=== PATIENT | female | born 1985 ===

== ENCOUNTER 2017-10-05 22:03 | Emergency (ER) | payer MEDICAID, OTHER ==
[2017-10-05 23:10] VITALS: BMI 27.4
[2017-10-05] MEDS ORDERED: Lactated Ringer's 1,000 ML IV SCH (23:45)
[2017-10-06 06:55] VITALS: TEMP 98.6
== END 2017-10-06 02:35 | disposition home or self-care (01) ==
LOC: H.EROB2 22:03
DX: O26.93 Pregnancy related conditions, unspecified, third trimester (principal); R10.2 Pelvic and perineal pain; Z04.3 Encounter for examination and observation following other accident; Z3A.39 39 weeks gestation of pregnancy; O47.1 False labor at or after 37 completed weeks of gestation